=== PATIENT | female | born 1995 | race Two or more races ===

== ENCOUNTER 2020-09-22 21:43 | Emergency (ER) | payer OTHER ==
[~2020-09-22] VITALS: Ht 160 cm; Wt 68.0 kg
[2020-09-22] MEDS ORDERED: PRENA1 CHEW TA1.4 MG PO (21:58)
[2020-09-22] MEDS ORDERED: MACRODANTIN100 M1 PO (23:37)
== END 2020-09-23 00:15 | disposition home or self-care (01) ==
LOC: ER 21:43
DX: N39.0 Urinary tract infection, site not specified (principal)